=== PATIENT | male | born 1960 | race Caucasian/White ===

== ENCOUNTER → 2017-01-03 12:39 | Outpatient (CLI) | payer MEDICARE, OTHER ==
[2015-11-10 07:34] VITALS: BMI 28.2
[~2017-01-03 12:39] MED LIST: CATAPRES0.1 MG PO; CHLOR-TRIMETON4 MG PO; DILAUDID8 MG PO; ELIQUIS2.5 MG PO; LEFLUNOMIDE PO; METOPROLOL TAR100 M1 PO; METOPROLOL TART50 MG PO; NEURONTIN 400400 MG PO; PRILOSEC20 MG PO; ZOCOR40 MG PO; ZYLOPRIM100 MG PO
== END | disposition home or self-care (01) ==
LOC: D.RAD 12:39
DX: N18.3 Chronic kidney disease, stage 3 (moderate) (principal); M19.90 Unspecified osteoarthritis, unspecified site; R63.4 Abnormal weight loss; F17.200 Nicotine dependence, unspecified, uncomplicated

== ENCOUNTER 2017-02-21 19:00 | Inpatient (IN) | payer MEDICARE, OTHER ==
[~2017-02-21] VITALS: Ht 170.2 cm; Wt 68.0 kg
[2017-02-21 20:28] LABS: BASOPHILS 0.1 % (0-2); EOSINOPHILS 1.1 % (0-7); HEMATOCRIT 29.8 % (42.0-54.0); HEMOGLOBIN 10.1 g/dL (13.5-17.5); IMMATURE GRANULOCYTES 0.3 % (0-5); LYMPHOCYTES 5.1 % (15-50); MCH 31.2 pg (26.0-34.0); MCHC 33.9 g/dL (31.0-37.0); MEAN PLATELET VOLUME 9.2 fL (7.4-10.4); MONOCYTES 6.1 % (2-11); NEUTROPHILS 87.3 % (40-80); PLATELET COUNT 335 10x3/uL (130-400); RBC 3.24 10x6/uL (4.20-6.10); RDW 12.5 % (11.5-14.5); WBC 16.6 10x3/uL (4.8-10.8)
[2017-02-21 20:42] LABS: ALBUMIN 3.6 g/dL (3.4-5.0); ANION GAP 14.9 mmol/L (8-16); BILIRUBIN - TOTAL 0.6 mg/dL (0.2-1.3); CALCIUM 8.9 mg/dL (8.5-10.1); CARBON DIOXIDE 30.6 mmol/L (21.0-32.0); CREATININE - SERUM 5.3 mg/dL (0.6-1.3); POTASSIUM - SERUM 4.5 mmol/L (3.5-5.1); PROTEIN - SERUM 7.8 g/dL (6.4-8.2)
--- NOTE | 2017-02-22 02:50 | NUR ---
RECEIVED FROM ER, IV-LFA-NS@ 125, ASSESSMENT COMPLETE, PT IS ALERT AND ORINTATED, IS AT BEDSIDE, PT DENIES ANY NEEDS, BED IS LOW, SRX2, CALL LIGHT IN REACH, WILL CONTINUE TO MONITOR
[2017-02-22 03:39] VITALS: BMI 23.5
[2017-02-22 04:00] VITALS: BP 122/75
--- NOTE | 2017-02-22 04:05 | NUR ---
PT IS SLEEPING, BED IS LOW, SRX2, AT BEDSIDE, CALL LIGHT IN REACH, WILL CONTINUE TO MONITOR
[2017-02-22 08:00] VITALS: BP 123/70
--- NOTE | 2017-02-22 08:02 | NUR ---
SHIFT ASSESSMENT COMPLETE. A/O X 4. BREATH SOUNDS ASCULTATED. CLEAR BILATERAL LUNG BERNAL. FAMILY AT BEDSIDE. VOICES NO NEEDS OR CONCERNS AT THIS TIME. BED IN LOWEST POSITION. CALL LIGHT IN REACH. WILL CONTINUE TO MONITOR.
[2017-02-22 09:56] LABS: ANION GAP 11.8 mmol/L (8-16); CARBON DIOXIDE 30.3 mmol/L (21.0-32.0); CREATININE - SERUM 4.5 mg/dL (0.6-1.3); POTASSIUM - SERUM 4.1 mmol/L (3.5-5.1)
[2017-02-22 10:03] LABS: % SATURATION 15 % (15-55); IRON 21 ug/dl (35-150); TOTAL IRON BIND CAPACITY 138 ug/dl (260-445); UNSAT IRON BIND CAPACITY 117 ug/dl (150-375)
[2017-02-22 10:12] LABS: MAGNESIUM - SERUM 1.3 mg/dL (1.8-2.4); PHOSPHOROUS 3.9 mg/dL (2.5-4.9)
[2017-02-22 10:29] VITALS: Ht 170.2 cm; Wt 68.0 kg
[2017-02-22 16:24] VITALS: BP 116/81
[2017-02-22 19:00] VITALS: BP 132/91
--- NOTE | 2017-02-22 20:30 | NUR ---
PT AWAKE, ALERT, ORIENTED, DENIES ANY NEEDS AT THIS TIME. CONTINUE TO MONITOR CLOSELY. PT STATES WE ARE ALLOWED TO GIVE INFORMATION TO DANA, WHO IS HIS EX- BUT STILL SEEING EACH OTHER. PT STATES THAT SHE IS THE ONE UP HERE VISITING HIM. BED LOW, CALL LIGHT IN REACH, SIDE RAILS X 2, HOB FLAT.
[2017-02-23 04:00] VITALS: BP 134/78
--- NOTE | 2017-02-23 06:16 | NUR ---
PT AWAKE, ALERT, ORIENTED, SITTING UP IN BED, DENIES ANY NEEDS. CONTINUE TO MONITOR CLOSELY.
[2017-02-23 06:26] LABS: BASOPHILS 0 % (0-2); EOSINOPHILS 0.2 % (0-7); HEMOGLOBIN 8.7 g/dL (13.5-17.5); IMMATURE GRANULOCYTES 0.2 % (0-5); LYMPHOCYTES 7.1 % (15-50); MCHC 33.5 g/dL (31.0-37.0); MCV 92.5 fL (80.0-100.0); MEAN PLATELET VOLUME 8.9 fL (7.4-10.4); MONOCYTES 4.8 % (2-11); NEUTROPHILS 87.7 % (40-80); PLATELET COUNT 274 10x3/uL (130-400); RBC 2.81 10x6/uL (4.20-6.10); RDW 12.1 % (11.5-14.5)
[2017-02-23 06:28] LABS: WBC 4.8 10x3/uL (4.8-10.8)
[2017-02-23 07:13] LABS: ALBUMIN 2.7 g/dL (3.4-5.0); ANION GAP 12.6 mmol/L (8-16); BILIRUBIN - TOTAL 0.26 mg/dL (0.2-1.3); CALCIUM 8.8 mg/dL (8.5-10.1); CARBON DIOXIDE 28.8 mmol/L (21.0-32.0); CREATININE - SERUM 3.6 mg/dL (0.6-1.3); PHOSPHOROUS 3.1 mg/dL (2.5-4.9); POTASSIUM - SERUM 4.4 mmol/L (3.5-5.1); PROTEIN - SERUM 6.5 g/dL (6.4-8.2)
--- NOTE | 2017-02-23 07:40 | NUR ---
RECEIVED REPORT. ASSUMED CARE OF PATIENT. CALL LIGHT WITHIN REACH. DENIES NEEDS. RESP EVEN AND UNLABORED. NO DISTRESS. IV FLUIDS INFUSING ORDERED.
[2017-02-23 08:00] VITALS: BP 148/94
[2017-02-23 12:50] VITALS: BP 122/86
[2017-02-23 20:00] VITALS: BP 113/82
--- NOTE | 2017-02-23 20:22 | NUR ---
PT LYING IN BED, EYES CLOSED, RESPIRATIONS EVEN AND UNLABORED. PT ROUSABLE TO VERBAL STIMULI. DENIES ANY NEEDS. CONTINUE TO MONITOR CLOSELY.
[2017-02-24 04:00] VITALS: BP 135/85
[2017-02-24 05:39] LABS: BASOPHILS 0 % (0-2); EOSINOPHILS 0.1 % (0-7); HEMATOCRIT 26.2 % (42.0-54.0); HEMOGLOBIN 8.7 g/dL (13.5-17.5); IMMATURE GRANULOCYTES 0.3 % (0-5); LYMPHOCYTES 4.7 % (15-50); MCH 31.3 pg (26.0-34.0); MCHC 33.2 g/dL (31.0-37.0); MCV 94.2 fL (80.0-100.0); MEAN PLATELET VOLUME 8.7 fL (7.4-10.4); MONOCYTES 3.5 % (2-11); NEUTROPHILS 91.4 % (40-80); RBC 2.78 10x6/uL (4.20-6.10); RDW 12.3 % (11.5-14.5)
[2017-02-24 05:41] LABS: PLATELET COUNT 350 10x3/uL (130-400); WBC 10.4 10x3/uL (4.8-10.8)
[2017-02-24 05:58] LABS: ALBUMIN 2.5 g/dL (3.4-5.0); ANION GAP 12.6 mmol/L (8-16); BILIRUBIN - TOTAL 0.2 mg/dL (0.2-1.3); CALCIUM 8.1 mg/dL (8.5-10.1); CARBON DIOXIDE 23.2 mmol/L (21.0-32.0); CREATININE - SERUM 2.8 mg/dL (0.6-1.3); POTASSIUM - SERUM 4.8 mmol/L (3.5-5.1); PROTEIN - SERUM 6.3 g/dL (6.4-8.2)
--- NOTE | 2017-02-24 06:34 | NUR ---
PT LYING IN BED, EASILY ROUSABLE TO VERBAL STIMULI, DENIES ANY NEEDS. CONTINUE TO MONITOR.
[2017-02-24 08:21] VITALS: BP 149/90
[2017-02-24] MEDS ORDERED: STERAPRED 5MG 125 MG PO (09:20)
[2017-02-24] MEDS ORDERED: CATAPRES0.1 MG PO (09:28)
--- NOTE | 2017-02-24 09:30 | NUR ---
PT RESTING IN BED WITH EYES OPEN DR GUTIÉRREZ IN WITH PT CALL LIGHT IN REACH WILL MONITER
--- NOTE | 2017-02-24 10:26 | NUR ---
SITTING UP ON BEDSIDE. DRESSED WAITING FOR DISCHARGE ORDERS. WILL CONTINUE TO MONNITOR.
[2017-02-24 11:27] LABS: APPEARANCE CLEAR (CLEAR); BILIRUBIN NEGATIVE (NEGATIVE); COLOR YELLOW (YELLOW); GLUCOSE NEGATIVE (NEGATIVE); KETONE NEGATIVE (NEGATIVE); LEUKOCYTE ESTERASE NEGATIVE (NEGATIVE); NITRITE NEGATIVE (NEGATIVE); PROTEIN NEGATIVE (NEGATIVE); UROBILINOGEN NORMAL (NORMAL)
[2017-02-24 11:39] LABS: CREATININE - URINE 25.6 mg/dL (30-125); PROTEIN - URINE 20.3 mg/dL (0.0-11.9)
--- NOTE | 2017-02-24 16:13 | NUR ---
PT DISCHARGED TO HOME VIA WHEELCHAIR WITH FAMILY DISCHARGE MEDS AND SUMMARY REVIEWED WITH PT NO QUESTIONS TOLERATED WEL
[2017-02-25 08:19] LABS: FOLATE (FOLIC ACID) - SERUM 8.4 ng/mL (>3.0)
== END 2017-02-24 16:51 | disposition home or self-care (01) | DRG 684 ==
LOC: D.ER 19:00 → D.M2 02-22 01:08 → OBSVTIME 02-22 01:14 → D.M2 02-22 13:25
PROVIDERS: Emergency Medicine; Internal Medicine; ADMIT Family Medicine
DX: N17.9 Acute kidney failure, unspecified (principal); I12.9 Hypertensive chronic kidney disease with stage 1 through stage 4 chronic kidney disease, or unspecified chronic kidney disease; N18.4 Chronic kidney disease, stage 4 (severe); Z90.5 Acquired absence of kidney; G62.9 Polyneuropathy, unspecified; E78.5 Hyperlipidemia, unspecified; M06.9 Rheumatoid arthritis, unspecified; D63.1 Anemia in chronic kidney disease; J30.9 Allergic rhinitis, unspecified; M10.9 Gout, unspecified; Z85.528 Personal history of other malignant neoplasm of kidney; Z72.0 Tobacco use